=== PATIENT | female | born 1995 | race African-American/Black ===

== ENCOUNTER 2017-06-22 17:33 | Emergency (ER) | payer SELFPAY ==
[2017-06-22] MEDS ORDERED: hydrOXYzine 25 MG TAB ONE (18:13)
[2017-06-22] MEDS ORDERED: Dexamethasone 10 MG/ML VIAL ONE (18:13)
[2017-06-22] MEDS ORDERED: Famotidine 20 MG TAB ONE (18:13)
== END 2017-06-22 18:24 | disposition home or self-care (01) ==
LOC: ERS 17:33
DX: L30.9 Dermatitis, unspecified (principal)
CPT/HCPCS: 99283; J1100

== ENCOUNTER 2017-12-16 22:18 | Emergency (ER) | payer SELFPAY | END 2017-12-16 23:19 | disposition home or self-care (01) | LOC: ERS 22:18 | DX: R19.7 Diarrhea, unspecified (principal) | CPT/HCPCS: 99283 ==

== ENCOUNTER 2019-01-27 21:26 | Emergency (ER) | payer SELFPAY ==
[2019-01-27 21:59] LABS: Bacteria/HPF None Seen HPF (None Seen); Bilirubin Negative (Negative); Blood, Urine Negative (Negative); Clarity Clear (Clear); Glucose, Urine (Dipstick) Normal (Negative); Leukocyte 25 Leu/uL (Negative); Nitrite Negative (Negative); Protein, Urine (Dipstick) 50 mg/dL (Neg-Trace); RBC/HPF 0-3 HPF (0-3); Urobilinogen 12 mg/dL (Less than 2)
[2019-01-27 22:03] LABS: Pregnancy Test - Urine (BHCG) POSITIVE (Negative); Pregu Control Background? CLEAR/WHITE (CLR/WHITE); Pregu Control Bar Appear? YES (CONTROL BAR); Specific Gravity 1.035 (1.002-1.036)
== END 2019-01-27 22:04 | disposition home or self-care (01) ==
LOC: ERS 21:26
DX: O99.89 Other specified diseases and conditions complicating pregnancy, childbirth and the puerperium (principal); N89.8 Other specified noninflammatory disorders of vagina; Z3A.01 Less than 8 weeks gestation of pregnancy
CPT/HCPCS: 81003; 81015; 81025; 99281

== ENCOUNTER 2019-12-23 22:59 | Emergency (ER) | payer OTHER, SELFPAY ==
[2019-12-24 11:03] LABS: SARS-CoV-2 MS2 Positive; SARS-CoV-2 N Gene Negative; SARS-CoV-2 S Gene Negative; SARS-CoV-2 by NAA Not Detected (NotDetected); SARS-CoV-2 orf1ab Negative
== END 2019-12-24 00:20 | disposition home or self-care (01) ==
LOC: ERS 22:59
DX: R05 Cough (principal); Z20.828 Contact with and (suspected) exposure to other viral communicable diseases
CPT/HCPCS: 87635; 99283; U0003

== ENCOUNTER 2021-12-26 11:55 | Emergency (ER) | payer BC | END 2021-12-26 13:36 | disposition left against medical advice (07) | LOC: ERS 11:55 | DX: Z53.21 Procedure and treatment not carried out due to patient leaving prior to being seen by health care provider (principal) ==

== ENCOUNTER 2022-03-05 18:11 | Emergency (ER) | payer BC | END 2022-03-05 22:02 | disposition home or self-care (01) | LOC: ERS 18:11 | DX: M54.50 Low back pain, unspecified (principal) | CPT/HCPCS: 99283 ==